=== PATIENT | male | born 1935 | race African-American/Black ===

== ENCOUNTER 2016-04-22 05:16 | Emergency (ER) | payer MEDICARE ==
--- NOTE | 2016-04-22 05:40 | EDPRACDOC ---
- General Information Information Source: Patient, Police Mode of Arrival: Law Enforcement - History of Present Illness Onset: unkown HPI: 80 yo male found [place] [address] by himself dressed in 3 layers of shirts at 5am with temp in the 20s. Law enforcement stopped and picked him up, aware that he lives alone, brought him to the ER for evaluation. Patient admits to having a poor memory, denies ay complaints, reports that he lives with his . He denies any alcohol use. He does not know his address, or phone number. He knows he is in a hospital but unsure which one. He does not remember where he was walking to [facility]. He is agreeable to evaluation. By review of records has Myelodysplastic disease followed by Heme Onc and on prior notes was noted to have some dementia. Associated Signs and Symptoms: no fever, emesis, rash or physical complaints <Holden Garcia - Last Filed: 04/22/16 06:03> <Zakia Velasquez - Last Filed: 04/22/16 10:42> - General Information Stated Complaint: PSYCH EVAL Time Seen by Provider: 04/22/16 05:35 Home Medications: Home Medications Amlodipine [Norvasc] 10 mg PO DAILY 06/15/12 Bimatoprost [Lumigan] 1 drop OU QHS 06/15/12 Brimonidine Tartrate/Timolol [Combigan Eye Drops] 1 drop OU BID 06/15/12 Donepezil HCl 10 mg PO HS 06/15/12 Glipizide [Glipizide ER] 2.5 mg PO DAILY(MARJORIE) 06/15/12 Lisinopril 20 mg PO DAILY 06/15/12 Solifenacin Succinate [Vesicare] 10 mg PO DAILY 04/22/16 Allergies/Adverse Reactions: Allergies Allergy/AdvReac Type Severity Reaction Status Date / Time No Known Allergies Allergy Verified 03/30/11 00:42 ED Past Medical History - History Reviewed Yes Nurses notes reviewed and agree except as marked - Patient Medical History Cardiac History: Reports: Hypertension GI/ History: Reports: Renal Disease Systemic History: Reports: Cancer, Anemia (R/T RENAL DISEASE) Surgical History: Reports: Tonsillectomy/Adnoidectomy <Holden Garcia - Last Filed: 04/22/16 06:03> EDM Review of Systems - Review of Systems ROS Negative Except as Marked: Yes All systems reviewed and were negative except as marked ROS Unobtainable: Yes Hx Limited due to age/level of understanding of patient <Holden Garcia - Last Filed: 04/22/16 06:03> - Physical Exam Constitutional: Alert (Awake), No apparent distress Oriented to: Person Last recorded Vital Signs: Oxygen Pulse Oxygen Saturation O2 Device Oxygen Flow Rate Fraction of Inspired Oxygen ( FIO2) - HEENT Head: Normal ( normocephalic) Eye Exam: Normal (PERRL, EOMI, Sclera white) Oropharynx: Normal (Pharynx:Moist without exudate,Gums-no swelling) Nose: No Symptoms Reported (septum midline) Neck: Normal (FROM, trachea at midline) - Respiratory/Cardiovascular Respiratory: Normal - CTA (BBS clear to auscultation without adventitious sounds ) Cardiovascular: Normal (RRR without murmur, gallop or rub) - GI Auscultation: Normal (NABS) Palpation: Normal (Soft,No rebound or guarding, non distended) Tenderness: Non tender Felipe's Sign: Negative - Musculoskeletal Back: Normal (Non-Tender) Extremities: Normal (Normal tone, Pulses 2+ No cyanosis or edema, FROM) - Integumentary Skin: Normal, Warm, Dry Lymphatics: Normal (no adenopathy) - Neurologic Memory Impaired: Other (poor short term memory) Motor Function: Normal (Normal tone, Pulses 2+ No cyanosis or edema, FROM) Cranial Nerve: Normal (CN II-X11 intact sensation, strength 5/5) Cerebellar: Normal Mood Description: Normal, Other (pleasant and cooprative) <Holden Garcia - Last Filed: 04/22/16 06:03> - Physical Exam Last recorded Vital Signs: Last Vital Signs Temp 98.1 F 04/22/16 05:55 Pulse 92 04/22/16 07:24 Resp 18 04/22/16 07:24 BP 168/78 04/22/16 07:24 Pulse Ox 99 04/22/16 07:24 Oxygen Pulse Oxygen Saturation 99 O2 Device Room Air Oxygen Flow Rate Fraction of Inspired Oxygen ( FIO2) <Zakia Velasquez - Last Filed: 04/22/16 10:42> - Additional Information PLAN: labs and UA. Will have social services counselor evaluate in a.m. and if unable to find family or placement will consider admit for placement. <Holden Garcia - Last Filed: 04/22/16 06:03> - Results 04/22/16 06:10 04/22/16 06:10 WBC 12.3 xk/uL (3.8-10.8) H 04/22/16 06:10 RBC 2.81 xM/uL (4.70-6.10) L 04/22/16 06:10 Hgb 9.1 g/dL (14.0-18.0) L 04/22/16 06:10 Hct 29.6 % (42-52) L 04/22/16 06:10 MCV 105 fL (80-94) H 04/22/16 06:10 MCH 32.3 pg (27-32) H 04/22/16 06:10 MCHC 30.7 g/dl (33-36) L 04/22/16 06:10 RDW 27.1 % (11.5-14.5) H 04/22/16 06:10 Plt Count 267 xk/uL (130-400) 04/22/16 06:10 MPV 10.3 fL (7.4-10.4) 04/22/16 06:10 Neut % (Auto) Cancelled 04/22/16 06:10 Lymph % (Auto) Cancelled 04/22/16 06:10 Sutter % (Auto) Cancelled 04/22/16 06:10 Eos % (Auto) Cancelled 04/22/16 06:10 Baso % (Auto) Cancelled 04/22/16 06:10 Absolute Neuts (auto) Cancelled 04/22/16 06:10 Absolute Lymphs (auto) Cancelled 04/22/16 06:10 Seg Neuts % (Manual) 80 % (45-76) H 04/22/16 06:10 Band Neutrophils % 8 % (0-5) H 04/22/16 06:10 Lymphocytes % (Manual) 5 % (17-44) L 04/22/16 06:10 Monocytes % (Manual) 5 % (0-10) 04/22/16 06:10 Eosinophils % (Manual) 2 % (0-5) 04/22/16 06:10 Absolute Neutrophils 10.82 xk/uL (1.7-8.2) H 04/22/16 06:10 Absolute Lymphocytes 0.62 xk/uL (0.65-4.75) L 04/22/16 06:10 Vacuolated Neuts Few 04/22/16 06:10 Platelet Estimate Norm (NORMAL) Large plts present (NORMAL) 04/22/16 06: 10 Platelet Estimate Norm (NORMAL) Large plts present (NORMAL) 04/22/16 06: 10 RBC Morphology 1+ macro 3+ aniso 1+ poik 1+ hypo 04/22/16 06:10 RBC Morphology 1+ macro 3+ aniso 1+ poik 1+ hypo 04/22/16 06:10 RBC Morphology 1+ macro 3+ aniso 1+ poik 1+ hypo 04/22/16 06:10 RBC Morphology 1+ macro 3+ aniso 1+ poik 1+ hypo 04/22/16 06:10 Sodium 140 mEq/L (137-146) 04/22/16 06:10 Potassium 4.6 mEq/L (3.5-5.1) 04/22/16 06:10 Chloride 105 mEq/L (98-107) 04/22/16 06:10 Carbon Dioxide 23 mMOL/L (22-33) 04/22/16 06:10 Anion Gap 17 mEq/L (8-16) H 04/22/16 06:10 BUN 24 MG/DL (9-20) H 04/22/16 06:10 Creatinine 1.40 MG/DL (0.66-1.25) H 04/22/16 06:10 Estimated GFR (MDRD) 59 mL/min (>=60) L 04/22/16 06:10 Glucose 148 MG/DL (70-99) H 04/22/16 06:10 POC Capillary Glucose 151 MG/DL (70-99) H 04/22/16 05:38 Calculated Osmolality 276 MOs/Kg (270-290) 04/22/16 06:10 Calcium 9.5 MG/DL (8.4-10.2) 04/22/16 06:10 Urine Color Yellow 04/22/16 07:20 Urine Clarity Clear 04/22/16 07:20 Urine pH 6.0 (5.0-8.0) 04/22/16 07:20 Ur Specific [place] 1.015 (1.003-1.035) 04/22/16 07:20 Urine Protein 1+ (NEG/TRACE) H 04/22/16 07:20 Urine Glucose (UA) Neg (NEGATIVE) 04/22/16 07:20 Urine Ketones Neg (NEGATIVE) 04/22/16 07:20 Urine Occult Blood Neg (NEG/TRACE) 04/22/16 07:20 Urine Nitrite Neg (NEGATIVE) 04/22/16 07:20 Urine Bilirubin Neg (NEGATIVE) 04/22/16 07:20 Urine Urobilinogen 8 MG/DL (0-1) H 04/22/16 07:20 Ur Leukocyte Esterase Neg (NEGATIVE) 04/22/16 07:20 Urine RBC 0-2 (0-2) 04/22/16 07:20 Urine WBC 0-2 (0-2) 04/22/16 07:20 Ur Epithelial Cells Occ 04/22/16 07:20 Hyaline Casts 0-2 (0-2) 04/22/16 07:20 Urine Mucus Occ (NEG/OCC) 04/22/16 07:20 Lab Results 04/22/16 04/22/16 04/22/16 07:20 06:10 06:10 WBC 12.3 H RBC 2.81 L Hgb 9.1 L Hct 29.6 L MCV 105 H MCH 32.3 H MCHC 30.7 L RDW 27.1 H Plt Count 267 MPV 10.3 Neut % (Auto) Cancelled Lymph % (Auto) Cancelled Sutter % (Auto) Cancelled Eos % (Auto) Cancelled Baso % (Auto) Cancelled Absolute Neuts (auto) Cancelled Absolute Lymphs (auto) Cancelled Seg Neuts % (Manual) 80 H Band Neutrophils % 8 H Lymphocytes % (Manual) 5 L Monocytes % (Manual) 5 Eosinophils % (Manual) 2 Absolute Neutrophils 10.82 H Absolute Lymphocytes 0.62 L Vacuolated Neuts Few Platelet Estimate Large plts present RBC Morphology 1+ hypo Sodium 140 Potassium 4.6 Chloride 105 Carbon Dioxide 23 Anion Gap 17 H BUN 24 H Creatinine 1.40 H Estimated GFR (MDRD) 59 L Glucose 148 H POC Capillary Glucose Calculated Osmolality 276 Calcium 9.5 Urine Color Yellow Urine Clarity Clear Urine pH 6.0 Ur Specific [place] 1.015 Urine Protein 1+ H Urine Glucose (UA) Neg Urine Ketones Neg Urine Occult Blood Neg Urine Nitrite Neg Urine Bilirubin Neg Urine Urobilinogen 8 H Ur Leukocyte Esterase Neg Urine RBC 0-2 Urine WBC 0-2 Ur Epithelial Cells Occ Hyaline Casts 0-2 Urine Mucus Occ 04/22/16 05:38 WBC RBC Hgb Hct MCV MCH MCHC RDW Plt Count MPV Neut % (Auto) Lymph % (Auto) Sutter % (Auto) Eos % (Auto) Baso % (Auto) Absolute Neuts (auto) Absolute Lymphs (auto) Seg Neuts % (Manual) Band Neutrophils % Lymphocytes % (Manual) Monocytes % (Manual) Eosinophils % (Manual) Absolute Neutrophils Absolute Lymphocytes Vacuolated Neuts Platelet Estimate RBC Morphology Sodium Potassium Chloride Carbon Dioxide Anion Gap BUN Creatinine Estimated GFR (MDRD) Glucose POC Capillary Glucose 151 H Calculated Osmolality Calcium Urine Color Urine Clarity Urine pH Ur Specific [place] Urine Protein Urine Glucose (UA) Urine Ketones Urine Occult Blood Urine Nitrite Urine Bilirubin Urine Urobilinogen Ur Leukocyte Esterase Urine RBC Urine WBC Ur Epithelial Cells Hyaline Casts Urine Mucus - Additional Information SW WAS FINALLY ABLE TO GET AHOLD OF A ERICK MICHAEL WHO IS A FAMILY MEMBER. SHE WILL COME GET PT. SW ALSO MADE AN APS REFERRAL. <Zakia Velasquez - Last Filed: 04/22/16 10:42> <Holden Garcia - Last Filed: 04/22/16 06:03> Decision Time to Discharge: 10:42 - Departure Yes I personally saw and evaluated the patient. Disposition: Home Education/Counseling Given To: Patient, Family Member Education/Counseling Given Regarding: Diagnosis, Treatment, Follow Up <Zakia Velasquez - Last Filed: 04/22/16 10:42> - Departure Final Diagnosis: Dementia, Chronic anemia, Myelodysplasia (myelodysplastic syndrome) Instructions: Dementia (GEN) Referrals: Alberto Lorenzo MD [Primary Care Provider] - One Week
[2016-04-22 05:55] VITALS: BMI 27.8
[2016-04-22 05:56] VITALS: TEMP 98.1
[2016-04-22 06:34] LABS: MPV 10.3 fL (7.4-10.4)
[2016-04-22 06:42] LABS: BLOOD UREA NITROGEN 24 MG/DL (9-20); CALCIUM 9.5 MG/DL (8.4-10.2); CALCULATED OSMOLALITY 276 MOs/Kg (270-290); CHLORIDE 105 mEq/L (98-107); GLUCOSE 148 MG/DL (70-99); SODIUM LEVEL 140 mEq/L (137-146)
[2016-04-22 07:17] LABS: SEG NEUTROPHIL 80 % (45-76)
[2016-04-22 07:43] LABS: LEUKOCYTES/URINE NEG (NEGATIVE); NITRITE/URINE NEG (NEGATIVE); RBC/URINE 0-2 (0-2); URINE OCCULT BLOOD NEG (NEG/TRACE); WBC/URINE 0-2 (0-2)
[2016-04-22 11:43] VITALS: BP 172/74; PULSE 95
== END 2016-04-22 12:00 | disposition home or self-care (01) ==
LOC: ED 05:16
DX: F03.90 Unspecified dementia, unspecified severity, without behavioral disturbance, psychotic disturbance, mood disturbance, and anxiety (principal); D64.9 Anemia, unspecified; D46.9 Myelodysplastic syndrome, unspecified
CPT/HCPCS: 36415; 80048; 81001; 82962; 85007; 85027; 99284

== ENCOUNTER 2016-04-24 16:24 | Observation (INO) | payer MEDICARE ==
[2016-04-24 18:06] VITALS: BMI 29.0
[2016-04-24 18:36] LABS: MPV 9.9 fL (7.4-10.4)
[2016-04-24 18:50] LABS: BLOOD UREA NITROGEN 21 MG/DL (9-20); CALCIUM 9.1 MG/DL (8.4-10.2); CALCULATED OSMOLALITY 274 MOs/Kg (270-290); CHLORIDE 106 mEq/L (98-107); ETOH-MGDL < 10 mg/dL; GLUCOSE 100 MG/DL (70-99); SODIUM LEVEL 141 mEq/L (137-146); TOTAL PROTEIN 7.1 G/DL (6.3-8.2)
[2016-04-24] MEDS ORDERED: SODIUM CHLORIDE 0.9% 3 ML FLUSH FLUSH PRN (18:50)
[2016-04-24 18:56] LABS: ALL NEG? YES; MDMA* NEG (NEGATIVE); METHAMPHETAMINES NEG (NEGATIVE); OXYCODONE NEG (NEGATIVE)
--- NOTE | 2016-04-24 19:06 | EDPRACDOC ---
- General Information Chief Complaint: Psychiatric Illness Stated Complaint: PSYCH Time Seen by Provider: 04/24/16 18:49 Information Source: Patient, Family (JEANE SUAREZ) Mode of Arrival: Car Home Medications: Home Medications Amlodipine [Norvasc] 10 mg PO .DAILY SEE COMMENTS 06/15/12 Bimatoprost [Lumigan] 1 drop OU QHS 06/15/12 Brimonidine Tartrate/Timolol [Combigan Eye Drops] 1 drop OU BID 06/15/12 Glipizide [Glipizide ER] 2.5 mg PO DAILY(MARJORIE) 06/15/12 Lisinopril 20 mg PO DAILY 06/15/12 Solifenacin Succinate [Vesicare] 10 mg PO DAILY 04/22/16 Allergies/Adverse Reactions: Allergies Allergy/AdvReac Type Severity Reaction Status Date / Time No Known Allergies Allergy Verified 03/30/11 00:42 - History of Present Illness Onset: TODAY HPI: PT PRESENTS TO ED WITH ACUTE WORSENING OF CHRONIC DEMENTIA, ERICK JAY) STATES HE HAS GOTTEN A LOT WORSE IN THE LAST FEW WEEKS WAS SEEN HERE ON 04/22/16 FOR SIMILAR WHERE HE WAS FOUND BY POLICE WALKING DOWN [facility] IN [address] TEMPS WITH 3 LAYERS OF CLOTHES ON BUT DIDNT KNOW WHERE HE WAS GOING. PT'S JUST RECENTLY AND HAD DEMENTIA WELL. ERICK (JEANE) STATES SHE JUST CANNOT TAKE CARE OF HIM ANYMORE SHE CANNOT KEEP HIM IN THE HOUSE AND HE HAS BECOME MORE AGGRESSIVE OR AGITATED AND REFUSING TO FOLLOW COMMANDS AND HAS STARTED TO HAVE VISUAL HALLUCINATIONS OF PEOPLE FROM HIS PAST. PT KNOWS HE IS IN HOSPITAL BUT DOES NOT KNOW WHICH ONE. ERICK (GUILLEJosh) STATES SHE IS BASICALLY HERE FOR [facility] PLACEMENT. Reason for Seeking Treatment: Family Presents With: Reports: Unclear Thinking, Visual Hallucinations Expresses: Reports: None Suicidal Plan: Reports: None Relevant History: Reports: Other (DEMENTIA) Medication Compliance: No Tetanus Up To Date?: No Able to Care for Self: No Able to Control Self: No Associated Signs and Symptoms: Reports: Other (DEMENTIA) ED Past Medical History - History Reviewed Yes Nurses notes reviewed and agree except as marked Travel Outside of [place] in the Last 3 Months?: No - Patient Medical History Neurological History: Reports: Dementia Cardiac History: Reports: Hypertension GI/ History: Reports: Renal Disease Systemic History: Reports: Cancer, Anemia (R/T RENAL DISEASE) Surgical History: Reports: Tonsillectomy/Adnoidectomy - Social Medical History Smoking Status: Never smoker ETOH: None Substance Abuse: None Lives With: Other (ERICK (POA)) Lives In: Home EDM Review of Systems - Review of Systems ROS Negative Except as Marked: Yes All systems reviewed and were negative except as marked ROS Unobtainable: Yes Review of systems cannot be obtained due to the patient's medical condition (ERICK (GUILLEA) AT BEDSIDE FOR INFORMATION) Constitutional: No Symptoms Reported. negative: Fever, Chills, Weakness, Fatigue, Loss of Appetite Eyes: No Symptoms Reported. negative: Redness, Blurred Vision, Double Vision, Discharge, Pain, Light Sensitive, Photophobia Ears: No Symptoms Reported. negative: Pain, Hearing Loss, Drainage, Ear Pulling Throat: No Symptoms Reported. negative: Pain, Swelling Nose: No Symptoms Reported. negative: Congestion, Bleeding, Discharge, Injection, Swelling, Deformity, Ecchymosis, Tender, Abrasion, Laceration Mouth: No Symptoms Reported. negative: Pain, Drooling Respiratory: No Symptoms Reported. negative: Cough, Brassy Cough, Barky Cough, Shortness of Breath, Wheezing, Hemoptysis Cardiovascular: No Symptoms Reported. negative: Chest Pain, Palpitations, Syncope, Edema, Orthopnea, PND, Skin Mottling, Cyanosis Gastrointestinal: No Symptoms Reported. negative: Pain, Constipation, Nausea, Vomiting, Diarrhea, Melena, Formula Intolerance Genitourinary: No Symptoms Reported. negative: Dysuria, Hematuria, Frequency, Discharge, Bleeding, Testicular Pain, Neurological: No Symptoms Reported. negative: Headache, Dizziness, Seizure, Numbness, Weakness, Speech Difficulty, Gait Difficulty Musculoskeletal: No Symptoms Reported. negative: Neck, Chestwall, Ribs, Back, Shoulder, Arm, Elbow, Forearm, Wrist, Hand, Pelvis, Hip, Femur, Knee, Leg, Ankle , Foot Integumentary: No Symptoms Reported. negative: Itching, Rash, Bruising, Wound Allergic/Immunologic: No Symptoms Reported. negative: Hives, Itching Hematologic: No Symptoms Reported. negative: Lymphadenopathy, Easy Bruising, Easy Bleeding Endocrine: No Symptoms Reported. negative: Weight Gain, Weight Loss Psychiatric: No Symptoms Reported. negative: Anxiety, Depression, Hallucinations, Insomnia, Suicidal - Physical Exam Constitutional: No apparent distress, Alert (Awake) Oriented to: Place, Not Oriented Last recorded Vital Signs: Last Vital Signs Temp 98.8 F 04/24/16 17:56 Pulse 88 04/24/16 18:44 Resp 20 04/24/16 18:44 BP 175/77 04/24/16 18:44 Pulse Ox 95 04/24/16 18:44 Oxygen Pulse Oxygen Saturation 95 O2 Device Room Air Oxygen Flow Rate Fraction of Inspired Oxygen ( FIO2) - HEENT Head: Normal ( normocephalic) Eye Exam: Normal (PERRL, EOMI, Sclera white) Oropharynx: Normal (Pharynx:Moist without exudate,Gums-no swelling) Tympanic Membrane: Normal ENT EAC: Normal TMJ: Normal Nose: No Symptoms Reported (septum midline) Neck: Normal (FROM, trachea at midline) - Respiratory/Cardiovascular Respiratory: Normal - CTA (BBS clear to auscultation without adventitious sounds ) Cardiovascular: Normal (RRR without murmur, gallop or rub) - GI Auscultation: Normal (NABS) Palpation: Normal (Soft,No rebound or guarding, non distended) Tenderness: Non tender Felipe's Sign: Negative - Bladder: Normal - Musculoskeletal Back: Normal (Non-Tender) Extremities: Normal (Normal tone, Pulses 2+ No cyanosis or edema, FROM) - Integumentary Skin: Normal, Warm, Dry Lymphatics: Normal (no adenopathy) - Neurologic Memory Impaired: Normal Motor Function: Normal (Normal tone, Pulses 2+ No cyanosis or edema, FROM) Cranial Nerve: Normal (CN II-X11 intact sensation, strength 5/5) Cerebellar: Normal Mood Description: Normal Perception: Normal Initial Evaluation Apperance: Stated Age Attitude: Cooperative Mood: Euthymic Affect: Congruent w/ mood Insight: Impaired Judgement: Impaired Memory Description: Recent Impaired, Remote Impaired Depressive Symptoms: Reports: Sleep changes Delusion Description: Reports: Not Present Hallucination Type: Reports: Visual Hallucinations Severity: Reports: Mild Hallucinations affecting more than one sensory system: No Recommend /or Refer: Follow Medicine Regimen - Differential Diagnosis Other (DEMENTIA) - Results 04/24/16 18:11 04/24/16 18:11 WBC 8.0 xk/uL (3.8-10.8) 04/24/16 18:11 RBC 2.77 xM/uL (4.70-6.10) L 04/24/16 18:11 Hgb 9.0 g/dL (14.0-18.0) L 04/24/16 18:11 Hct 28.0 % (42-52) L 04/24/16 18:11 MCV 101 fL (80-94) H 04/24/16 18:11 MCH 32.5 pg (27-32) H 04/24/16 18:11 MCHC 32.1 g/dl (33-36) L 04/24/16 18:11 RDW 27.0 % (11.5-14.5) H 04/24/16 18:11 Plt Count 293 xk/uL (130-400) 04/24/16 18:11 MPV 9.9 fL (7.4-10.4) 04/24/16 18:11 Sodium 141 mEq/L (137-146) 04/24/16 18:11 Potassium 4.3 mEq/L (3.5-5.1) 04/24/16 18:11 Chloride 106 mEq/L (98-107) 04/24/16 18:11 Carbon Dioxide 23 mMOL/L (22-33) 04/24/16 18:11 Anion Gap 16 mEq/L (8-16) 04/24/16 18:11 BUN 21 MG/DL (9-20) H 04/24/16 18:11 Creatinine 1.60 MG/DL (0.66-1.25) H 04/24/16 18:11 Estimated GFR (MDRD) 50 mL/min (>=60) L 04/24/16 18:11 Glucose 100 MG/DL (70-99) H 04/24/16 18:11 Calculated Osmolality 274 MOs/Kg (270-290) 04/24/16 18:11 Calcium 9.1 MG/DL (8.4-10.2) 04/24/16 18:11 Total Bilirubin 0.7 MG/DL (0.2-1.3) 04/24/16 18:11 AST 23 IU/L (17-59) 04/24/16 18:11 ALT 31 IU/L (21-72) 04/24/16 18:11 Alkaline Phosphatase 53 IU/L (50-160) 04/24/16 18:11 Total Protein 7.1 G/DL (6.3-8.2) 04/24/16 18:11 Albumin 4.1 G/DL (3.5-5.0) 04/24/16 18:11 Urine Opiates Screen Neg (NEGATIVE) 04/24/16 18:13 Ur Oxycodone Screen Neg (NEGATIVE) 04/24/16 18:13 Urine Methadone Screen Neg (NEGATIVE) 04/24/16 18:13 Ur Barbiturates Screen Neg (NEGATIVE) 04/24/16 18:13 Ur Tricyclics Screen Neg (NEGATIVE) 04/24/16 18:13 Ur Phencyclidine Scrn Neg (NEGATIVE) 04/24/16 18:13 Ur Amphetamines Screen Neg (NEGATIVE) 04/24/16 18:13 U Methamphetamines Scrn Neg (NEGATIVE) 04/24/16 18:13 Urine MDMA Screen Neg (NEGATIVE) 04/24/16 18:13 U Benzodiazepines Scrn Neg (NEGATIVE) 04/24/16 18:13 Urine Cocaine Screen Neg (NEGATIVE) 04/24/16 18:13 Ur THC Screen Neg (NEGATIVE) 04/24/16 18:13 Plasma/Serum Ethyl Alc % (<0.01) 04/24/16 18:11 Lab Results 04/24/16 04/24/16 04/24/16 18:13 18:11 18:11 WBC 8.0 RBC 2.77 L Hgb 9.0 L Hct 28.0 L MCV 101 H MCH 32.5 H MCHC 32.1 L RDW 27.0 H Plt Count 293 MPV 9.9 Sodium 141 Potassium 4.3 Chloride 106 Carbon Dioxide 23 Anion Gap 16 BUN 21 H Creatinine 1.60 H Estimated GFR (MDRD) 50 L Glucose 100 H Calculated Osmolality 274 Calcium 9.1 Total Bilirubin 0.7 AST 23 ALT 31 Alkaline Phosphatase 53 Total Protein 7.1 Albumin 4.1 Urine Opiates Screen Neg Ur Oxycodone Screen Neg Urine Methadone Screen Neg Ur Barbiturates Screen Neg Ur Tricyclics Screen Neg Ur Phencyclidine Scrn Neg Ur Amphetamines Screen Neg U Methamphetamines Scrn Neg Urine MDMA Screen Neg U Benzodiazepines Scrn Neg Urine Cocaine Screen Neg Ur THC Screen Neg Plasma/Serum Ethyl Alc - EKG EKG #1 EKG Time: 18:42 -: Yes EKG interpreted by me Rate: bpm: [address] [place]: Normal Rhythm: NSR Block: None Hypertrophy: None ST: Normal - Diagnostic Imaging CXR Image interpreted by: Radiologist IMPRESSION: Negative chest. - Additional Information Additional Information: I HAVE CONTACTED JANET MG RN (MANAGER ASSET) AND LEFT MESSAGE FOR HER CONCERNING THIS PATIENTS CARE. I DID BRIEFLY SPEAK WITH JANET PRIOR TO SEEING THE PATIENT THIS EVENING AND SHE IS AWARE OF HIS SITUATION. AFTER PT WAS MOVED TO NURSE CALLED DUE TO PT BECOMING AGITATED AND AGGRESSIVE AND THREATENING STAFF THAT HE WAS GOING TO HURT SOMEONE IF THEY DID NOT LET HIM OUT OF HERE. THE NURSE STATED THAT HE WAS UP WALKING AROUND THE TU TRYING TO GET INTO OTHER PATIENTS BELONGINGS AND AGITATING THEM WELL. I WILL ORDER HALDOL 10MG IM TO HELP CONTROL HIS AGITATION AND REASSESS IN 30MINUTES TO 1 HOUR. - Departure Disposition: Admit to Condition: Stable Final Diagnosis: Agitation Dementia Qualifiers: Dementia type: Alzheimer's disease Alzheimer's disease onset: unspecified onset Dementia behavioral disturbance: with behavioral disturbance Qualified Code(s): G30.8 - Other Alzheimer's disease Education/Counseling Given To: Patient Education/Counseling Given Regarding: Diagnosis, Treatment, Prognosis, Follow Up
[2016-04-24 19:10] LABS: LEUKOCYTES/URINE NEG (NEGATIVE); NITRITE/URINE NEG (NEGATIVE); RBC/URINE 0-2 (0-2); URINE OCCULT BLOOD NEG (NEG/TRACE); WBC/URINE 0-2 (0-2)
--- NOTE | 2016-04-24 19:41 | DIRPT ---
CLINICAL DATA: Altered mental status today. Initial encounter. EXAM: PORTABLE CHEST 1 VIEW COMPARISON: PA and lateral chest 01/01/2015. FINDINGS: The lungs are clear. Heart size is normal. No pneumothorax or pleural effusion. IMPRESSION: Negative chest. Electronically Signed By: Hong Morrison M.D. On: 04/24/2016 19:38
[2016-04-24 19:51] LABS: SEG NEUTROPHIL 72 % (45-76)
[2016-04-24] MEDS ORDERED: IBUPROFEN 400 MG TAB PO PRN (20:07)
[2016-04-24] MEDS ORDERED: ACETAMINOPHEN 325 MG/TAB TABLET PO PRN (20:07)
[2016-04-24] MEDS ORDERED: ONDANSETRON HCL 4 MG ODT TAB PO PRN (20:07)
[2016-04-24] MEDS ORDERED: LORAZEPAM 0.5 MG TAB PO PRN (20:07)
[2016-04-24] MEDS ORDERED: MAGNESIUM HYDROXIDE 30 ML BOTTLE PO PRN (20:07)
[2016-04-24] MEDS ORDERED: BISACODYL 5 MG TAB PO PRN (20:07)
[2016-04-24] MEDS ORDERED: Docusate Sodium 100 MG CAP PO PRN (20:07)
[2016-04-24] MEDS ORDERED: DEXTROSE 25 GM/50 ML PFS IV PRN (20:08)
[2016-04-24] MEDS ORDERED: GLUCAGON 1 MG VIAL SQ PRN (20:08)
[2016-04-24] MEDS ORDERED: GLUCOSE (ORAL GEL) 15 GM TUBE PO PRN (20:08)
[2016-04-24 20:11] LABS: ETOH-MGDL < 10 mg/dL
[2016-04-24 20:37] LABS: PARTIAL THROMB. TIME 26.7 SEC (22-35); PT-INR 1.1
[2016-04-24] MEDS ORDERED: QUETIAPINE FUMARATE 25 MG TAB PO SCH (21:00)
[2016-04-24] MEDS ORDERED: Combigan Ophthalmic Soln 5 ml bottle OU SCH (21:00)
[2016-04-24] MEDS ORDERED: BIMATOPROST OU SCH (21:00)
[2016-04-24] MEDS ORDERED: BIMATOPROST 0.01% OU SCH ×2 (21:00)
[2016-04-24] MEDS: REGULAR INSULIN 100 UNITS/ML - 3 ML VIAL SQ SCH (21:56)
[2016-04-24] MEDS: Combigan Ophthalmic Soln 5 ml bottle OU SCH (22:04)
[2016-04-25] MEDS ORDERED: HALOPERIDOL 5 MG/ML VIAL IM ONE ×2 (00:12→01:49)
[2016-04-25] MEDS ORDERED: LORAZEPAM 2 MG/ML VIAL IM ONE (01:49)
[2016-04-25] MEDS ORDERED: SODIUM CHLORIDE 0.9% 3 ML FLUSH FLUSH SCH (06:00)
[2016-04-25] MEDS: REGULAR INSULIN 100 UNITS/ML - 3 ML VIAL SQ SCH ×2 (06:10→12:28)
[2016-04-25] MEDS ORDERED: GLIPIZIDE XL 2.5 MG TAB PO SCH (07:00)
--- NOTE | 2016-04-25 08:41 | EDTUNOTE ---
Initial Evaluation Apperance: Stated Age Attitude: Cooperative Mood: Euthymic Affect: Congruent w/ mood Insight: Impaired Judgement: Impaired Memory Description: Recent Impaired, Remote Impaired Depressive Symptoms: Reports: Sleep changes Delusion Description: Reports: Not Present Hallucination Type: Reports: Visual Hallucinations Severity: Reports: Mild Hallucinations affecting more than one sensory system: No Recommend /or Refer: Follow Medicine Regimen - SOAP Note Patient Problems: Active Problems Agitation (Acute) R45.1 Dementia (Acute) F03.90 SOAP Note: 04/25/16 0830 Day 2 S: 80 y.o. M presented to ED for increased agitation due to dementia with visual hallucinations. Pt unable to be cared for at home. Pt denies c/o this morning. O: Vital Signs: Temp:98 F HR: 63 BP: 144/67 RR: 21 Pox: 100%. Resting comfortably CTA RRR A: Dementia Agitation P: Continue meds as directed for further stabilization.
[2016-04-25] MEDS ORDERED: SOLIFENACIN SUCCINATE 10 MG PO SCH (09:00)
[2016-04-25] MEDS ORDERED: RISPERIDONE 1 MG TAB PO SCH (09:00)
[2016-04-25] MEDS ORDERED: AMLODIPINE 10 MG TAB PO SCH (09:00)
[2016-04-25] MEDS ORDERED: LISINOPRIL 20 MG TAB PO SCH (09:00)
[2016-04-25] MEDS ORDERED: TOLTERODINE 4 MG LA CAP PO SCH (09:00)
[2016-04-25] MEDS: Combigan Ophthalmic Soln 5 ml bottle OU SCH (10:27)
[2016-04-25 11:56] VITALS: BP 134/68; PULSE 62; TEMP 98
--- NOTE | 2016-04-25 14:19 | TUDEPART ---
Discussion of OBS Stay: 04/25/16829 Day 2 S: 80 y.o. M presented to ED for increased agitation due to dementia with visual hallucinations. Pt unable to be cared for at home. Pt denies c/o this morning. O: Vital Signs: Temp:98 F HR: 63 BP: 144/67 RR: 21 Pox: 100%. Resting comfortably CTA RRR A: Dementia Agitation P: Continue meds as directed for further stabilization. Disposition: Retirement Facility ([facility] unit) Condition: Stable Instructions: Dementia (ED) Education/Counseling Given To: Patient, Family Member Education/Counseling Given Regarding: Diagnosis, Treatment, Follow Up Follow-up / Referrals: Alberto Lorenzo MD [Primary Care Provider] - One Week Prescriptions: Lorazepam [Ativan] 0.5 mg PO Q6H PRN #30 tab PRN Reason: Anxiety Or Agitation Quetiapine Fumarate [Seroquel] 50 mg PO HS #30 tablet Risperidone [Risperdal] 2 mg PO BID #60 tab - Physical Exam Constitutional: No apparent distress, Alert (Awake) Oriented to: Place, Not Oriented Last recorded Vital Signs: Last Vital Signs Temp 98.0 F 04/25/16 11:55 Pulse 62 04/25/16 11:55 Resp 20 04/25/16 11:55 BP 134/68 04/25/16 11:55 Pulse Ox 100 04/25/16 11:55 Oxygen Pulse Oxygen Saturation 100 O2 Device Room Air Oxygen Flow Rate Fraction of Inspired Oxygen ( FIO2) - HEENT Head: Normal ( normocephalic) Eye Exam: Normal (PERRL, EOMI, Sclera white) Oropharynx: Normal (Pharynx:Moist without exudate,Gums-no swelling) Tympanic Membrane: Normal ENT EAC: Normal TMJ: Normal Nose: No Symptoms Reported (septum midline) - Respiratory/Cardiovascular Respiratory: Normal - CTA (BBS clear to auscultation without adventitious sounds ) Cardiovascular: Normal (RRR without murmur, gallop or rub) - GI Auscultation: Normal (NABS) Palpation: Normal (Soft,No rebound or guarding, non distended) Tenderness: Non tender Felipe's Sign: Negative - Bladder: Normal - Musculoskeletal Back: Normal (Non-Tender) Extremities: Normal (Normal tone, Pulses 2+ No cyanosis or edema, FROM) - Integumentary Skin: Normal, Warm, Dry Lymphatics: Normal (no adenopathy) - Neurologic Memory Impaired: Normal Motor Function: Normal (Normal tone, Pulses 2+ No cyanosis or edema, FROM) Cranial Nerve: Normal (CN II-X11 intact sensation, strength 5/5) Cerebellar: Normal Mood Description: Normal Perception: Normal
== END 2016-04-25 15:10 | disposition home or self-care (01) ==
LOC: ED 16:24 → TUOBSINP 20:07
PROVIDERS: ADMIT Physician Assistant Medical; ATTEND Physician Assistant Medical
DX: G30.9 Alzheimer's disease, unspecified (principal); F02.81 Dementia in other diseases classified elsewhere, unspecified severity, with behavioral disturbance; R45.1 Restlessness and agitation; R44.1 Visual hallucinations; I10 Essential (primary) hypertension; Z79.899 Other long term (current) drug therapy
CPT/HCPCS: 36415; 71010; 80053; 80307; 81001; 82550; 82962; 83874; 83880; 84484; 85007; 85027; 85610; 85730; 86592; 87086; 93005; 96372; 99283; A9270; G0378; J1630; J2060; J3490